=== PATIENT | male | born 1970 | race Caucasian/White ===

== ENCOUNTER 2019-02-16 13:38 | Inpatient (IN) | payer SELFPAY ==
[~2019-02-16] VITALS: Ht 170.2 cm; Wt 118.6 kg
[2019-02-16 13:55] LABS: MEAN CORPUSCULAR HEMOGLOBIN 32.8 pg (27.5-34.5); MEAN CORPUSCULAR VOLUME 99.3 fL (81-97); PLATELET COUNT 281 x10^3/uL (130-400); RED BLOOD COUNT 5.06 x10^6/uL (4.38-5.82); RED CELL DISTRIBUTION WIDTH 13.9 % (9.4-14.8)
[2019-02-16 14:04] LABS: ALANINE AMINOTRANSFERASE 40 U/L (12-78); ALBUMIN 3.7 g/dL (3.4-5.0); ANION GAP 11 mmol/L (5-15); CALCIUM 8.8 mg/dL (8.5-10.1); CHLORIDE 102 mmol/L (98-107); CREATININE 1.07 mg/dL (0.7-1.3)
[2019-02-16 14:05] LABS: BASOPHILS # (AUTO) 0.14 x10^3/uL (0-0.1); BASOPHILS % (AUTO) 1 % (0-1); D-DIMER 0.29 ug/mlFEU (0.00-0.52); EOSINOPHILS # (AUTO) 0.05 x10^3/uL (0-0.4); EOSINOPHILS % (AUTO) 0 % (1-7); INTERNATIONAL NORMALIZED RATIO 1.01 (0.93-1.1); LYMPHOCYTES # (AUTO) 2.47 x10^3/uL (1-3.4); LYMPHOCYTES % (AUTO) 14 % (22-44); MD SCAN; MONOCYTES # (AUTO) 1.91 x10^3/uL (0.2-0.8); MONOCYTES % (AUTO) 11 % (2-9); NEUTROPHILS # (AUTO) 13.64 x10^3/uL (1.8-6.8); NEUTROPHILS % (AUTO) 75 % (42-75); PROTHROMBIN TIME 10.6 Seconds (9.6-11.5)
--- NOTE | 2019-02-16 14:05 | NUR ---
GOKUL RN: PATIENT FINANCIAL SERVICES SPECIALIST VANESA AT BEDSIDE FOR EVAL AND TO DISCUSS POC OPTIONS INCLUDING OPTION FOR MARINE OILER VS TREATMENT IN ER. PT AO X 4. SKIN PWD. RESP EVEN AND UNLABORED. PT REPORTS PAIN Addendum: 02/16/19 at 1407 by JPREMO GOKUL RN: PATIENT FINANCIAL SERVICES SPECIALIST VANESA AT BEDSIDE FOR EVAL AND TO DISCUSS POC OPTIONS INCLUDING OPTION FOR MARINE OILER VS TREATMENT IN ER. PT AO X 4. SKIN PWD. RESP EVEN AND UNLABORED. PT REPORTS PAIN IS WORSE WITH CERTAIN MOVEMENTS AND DEEP BREATHING. DESCRIBES PAIN "STABBING" AND RATES AT "BARELY" A /. PT ON CONT BP, CARDIAC AND O2 MONITORS.
[2019-02-16 14:09] LABS: ALKALINE PHOSPHATASE 73 U/L (45-117); BILIRUBIN,TOTAL 0.9 mg/dL (0.2-1.0); TOTAL PROTEIN 7.9 g/dL (6.4-8.2)
[2019-02-16] MEDS ORDERED: FENTANYL PF 100 MCG/2ML ONE (14:15)
[2019-02-16] MEDS ORDERED: VERAPAMIL 2.5 MG/ML, 2ML ONE (14:15)
[2019-02-16] MEDS ORDERED: MIDAZOLAM 1 MG/ML, 5ML ONE (14:15)
[2019-02-16] MEDS ORDERED: BIVALIRUDIN 250 MG ONE (14:16)
[2019-02-16] MEDS ORDERED: HEPARIN 1,000 UNITS/ML, 10ML ONE (14:16)
[2019-02-16] MEDS ORDERED: LIDOCAINE-MPF 1%, 5ML ONE (14:16)
[2019-02-16] MEDS ORDERED: NITROGLYCERIN 5 MG/ML, 10ML ONE (14:16)
[2019-02-16 15:05] VITALS: BP 126/89
[2019-02-16] MEDS: SODIUM CHLORIDE 0.9% 1,000 ML IV SCH ×2 (16:18→22:52)
[2019-02-16] MEDS: INDOMETHACIN ER 75 MG CAPSULE PO SCH (16:18)
[2019-02-16 19:44] VITALS: BP 122/80
[2019-02-16] MEDS ORDERED: ATORVASTATIN 40 MG TABLET PO SCH (21:00)
[2019-02-16] MEDS: HEPARIN 5,000 UNITS/ML, 1ML SQ SCH (22:53)
[2019-02-17 00:37] VITALS: BP 121/79
[2019-02-17 05:10] LABS: CHLORIDE 105 mmol/L (98-107); CREATININE 1.04 mg/dL (0.7-1.3)
[2019-02-17 05:19] LABS: ANION GAP 7 mmol/L (5-15); CALCIUM 8.8 mg/dL (8.5-10.1); CHOL/HDL RATIO 5.8; CHOLESTEROL, TOTAL 228 mg/dL (140-239); HDL CHOL % 17 % (26-37); HDL CHOLESTEROL (DIRECT) 39 mg/dL (40-60); LDL CHOLESTEROL,CALCULATED 141 mg/dL (54-169); LDL/HDL RATIO 3.6 (0.5-3.0); TRIGLYCERIDES 238 mg/dL (50-200); VLDL CHOLESTEROL 48 mg/dL (0-25)
[2019-02-17] MEDS: SODIUM CHLORIDE 0.9% 1,000 ML IV SCH (06:43)
[2019-02-17] MEDS: HEPARIN 5,000 UNITS/ML, 1ML SQ SCH (06:43)
[2019-02-17 07:35] VITALS: BP 131/89
[2019-02-17] MEDS: INDOMETHACIN ER 75 MG CAPSULE PO SCH (08:15)
[2019-02-17] MEDS ORDERED: ASPIRIN 81 MG TABLET EC PO SCH (09:00)
[2019-02-17 09:16] LABS: MEAN CORPUSCULAR HEMOGLOBIN 33.1 pg (27.5-34.5); MEAN CORPUSCULAR HGB CONC 33.1 g/dL (33.2-36.2); MEAN CORPUSCULAR VOLUME 100.1 fL (81-97); MEAN PLATELET VOLUME 8.4 fL (7.4-10.4); PLATELET COUNT 231 x10^3/uL (130-400); RED BLOOD COUNT 4.73 x10^6/uL (4.38-5.82); RED CELL DISTRIBUTION WIDTH 13.7 % (9.4-14.8)
[2019-02-17 09:42] LABS: BASOPHILS # (AUTO) 0.12 x10^3/uL (0-0.1); BASOPHILS % (AUTO) 1 % (0-1); EOSINOPHILS # (AUTO) 0.21 x10^3/uL (0-0.4); EOSINOPHILS % (AUTO) 2 % (1-7); LYMPHOCYTES # (AUTO) 2.19 x10^3/uL (1-3.4); LYMPHOCYTES % (AUTO) 18 % (22-44); MD SCAN; MONOCYTES # (AUTO) 0.93 x10^3/uL (0.2-0.8); MONOCYTES % (AUTO) 8 % (2-9); NEUTROPHILS # (AUTO) 8.88 x10^3/uL (1.8-6.8); NEUTROPHILS % (AUTO) 72 % (42-75)
[2019-02-17] MEDS ORDERED: INDO75CA3 PO (12:31)
[2019-02-17] MEDS ORDERED: ATOR40TA78 PO (12:31)
[2019-02-17] MEDS ORDERED: CARV3.1212 PO (12:31)
[2019-02-17] MEDS ORDERED: ASPI81TA45 PO (12:31)
[2019-02-17 12:54] VITALS: BP 162/87
== END 2019-02-17 13:40 | disposition home or self-care (01) | DRG 281 ==
LOC: ED 13:55 → EDIP 14:21 → 5SO 15:17 → DCLOUNGE 02-17 13:28
PROVIDERS: ADMIT Internal Medicine Cardiovascular Disease; ATTEND Internal Medicine Cardiovascular Disease
PROC: 4A023N7 Measurement of Cardiac Sampling and Pressure, Left Heart, Percutaneous Approach (ICD-10-PCS; principal; 2019-02-16)
PROC: B2111ZZ Fluoroscopy of Multiple Coronary Arteries using Low Osmolar Contrast (ICD-10-PCS; 2019-02-16)
PROC: B2151ZZ Fluoroscopy of Left Heart using Low Osmolar Contrast (ICD-10-PCS; 2019-02-16)
DX: I21.09 ST elevation (STEMI) myocardial infarction involving other coronary artery of anterior wall (principal); Z68.41 Body mass index [BMI] 40.0-44.9, adult; I31.9 Disease of pericardium, unspecified; J98.11 Atelectasis; D72.829 Elevated white blood cell count, unspecified; E66.9 Obesity, unspecified; E78.1 Pure hyperglyceridemia; E78.5 Hyperlipidemia, unspecified; F17.200 Nicotine dependence, unspecified, uncomplicated; I10 Essential (primary) hypertension; I25.5 Ischemic cardiomyopathy; I25.82 Chronic total occlusion of coronary artery; F19.10 Other psychoactive substance abuse, uncomplicated; Z82.49 Family history of ischemic heart disease and other diseases of the circulatory system; Z72.89 Other problems related to lifestyle
CPT/HCPCS: 36415; 71045; 80047; 80048; 80053; 80061; 84484; 85025; 85379; 85610; 85730; 93005; 93306; 93458; 99291; C1769; C1894; G0378; J0583; J1644; J2250; J3010; J7030; Q9967

== ENCOUNTER 2019-03-10 16:05 | Outpatient (CLI) | payer OTHER | END 2019-03-10 23:59 | disposition home or self-care (01) | LOC: RAD 16:05 → SDC 23:59 | PROVIDERS: ATTEND Thoracic Surgery (Cardiothoracic Vascular Surgery) | DX: I70.0 Atherosclerosis of aorta (principal); I77.810 Thoracic aortic ectasia | CPT/HCPCS: 70496; 71275; 74174; Q9967 ==

== ENCOUNTER 2019-03-11 08:00 | Inpatient (IN) | payer OTHER ==
[~2019-03-11] VITALS: Ht 175.3 cm; Wt 118.8 kg
[~2019-03-11 08:00] MED LIST: ASPI81TA45 PO; ATOR40TA78 PO; CARV3.1212 PO; INDO75CA3 PO
[2019-03-11] MEDS ORDERED: ATOR40TA78 PO (11:11)
[2019-03-11] MEDS ORDERED: LISI1TAB23 PO (11:11)
[2019-03-11] MEDS ORDERED: CARV3.122 PO (11:11)
[2019-03-11] MEDS ORDERED: ASPI81TA45 PO (11:11)
[2019-03-11 11:31] LABS: BASOPHILS # (AUTO) 0.07 x10^3/uL (0-0.1); BASOPHILS % (AUTO) 1 % (0-1); EOSINOPHILS # (AUTO) 0.23 x10^3/uL (0-0.4); EOSINOPHILS % (AUTO) 2 % (1-7); LYMPHOCYTES # (AUTO) 2.62 x10^3/uL (1-3.4); LYMPHOCYTES % (AUTO) 26 % (22-44); MD NO; MEAN CORPUSCULAR HEMOGLOBIN 33.6 pg (27.5-34.5); MEAN CORPUSCULAR HGB CONC 33.3 g/dL (33.2-36.2); MEAN PLATELET VOLUME 8.1 fL (7.4-10.4); MONOCYTES # (AUTO) 0.68 x10^3/uL (0.2-0.8); MONOCYTES % (AUTO) 7 % (2-9); NEUTROPHILS # (AUTO) 6.52 x10^3/uL (1.8-6.8); NEUTROPHILS % (AUTO) 64 % (42-75); PLATELET COUNT 320 x10^3/uL (130-400); RED BLOOD COUNT 4.87 x10^6/uL (4.38-5.82); RED CELL DISTRIBUTION WIDTH 13.5 % (9.4-14.8)
[2019-03-11 11:43] LABS: INTERNATIONAL NORMALIZED RATIO 1.02 (0.93-1.1); PROTHROMBIN TIME 10.7 Seconds (9.6-11.5)
[2019-03-11 11:51] LABS: MICROSCOPIC AUTO
[2019-03-11 11:53] LABS: CULTURE INDICATED? NO
[2019-03-11 13:34] LABS: CHLORIDE 101 mmol/L (98-107)
[2019-03-11 13:44] LABS: ALANINE AMINOTRANSFERASE 44 U/L (12-78); ALBUMIN 3.8 g/dL (3.4-5.0); ALKALINE PHOSPHATASE 73 U/L (45-117); ANION GAP 6 mmol/L (5-15); BILIRUBIN,TOTAL 0.5 mg/dL (0.2-1.0); CALCIUM 9.2 mg/dL (8.5-10.1); CREATININE 1.03 mg/dL (0.7-1.3); TOTAL PROTEIN 7.6 g/dL (6.4-8.2)
[2019-03-11 14:01] LABS: HEMOGLOBIN A1C 6.1 % (4.2-6.3)
[2019-03-12 04:28] VITALS: BP_SYST 120; BP_DIAS 82; BP_DIAS 83
[2019-03-12] MEDS ORDERED: INSULIN LISPRO 100 UNITS/ML, PEN SQ-INSULIN SCH (04:30)
[2019-03-12] MEDS ORDERED: CHLORHEXIDINE 15 ML UDC MM PRN (04:30)
[2019-03-12] MEDS ORDERED: ACETAMINOPHEN 325 MG TABLET PO PRN (04:30)
[2019-03-12] MEDS ORDERED: METOPROLOL TARTRATE 25 MG TABLET PO ONE (05:00)
[2019-03-12] MEDS ORDERED: PAPAVERINE 30 MG/ML, 2ML ONE (06:42)
[2019-03-12] MEDS ORDERED: HEPARIN 1,000 UNITS/ML, 10ML ONE (06:42)
[2019-03-12] MEDS ORDERED: FENTANYL PF 250 MCG/5ML ONE ×5 (07:10→11:22)
[2019-03-12] MEDS ORDERED: CALCIUM CHLORIDE 10%, 10ML SYR ONE (07:10)
[2019-03-12] MEDS ORDERED: ALBUMIN HUMAN 5% 500 ML IV PRN (07:30)
[2019-03-12] MEDS ORDERED: MANNITOL PMX 20% 500 ML IVPB PRN (07:30)
[2019-03-12] MEDS ORDERED: REGULAR INSULIN 62.5 UNITS in SODIUM CHLORIDE 0.9% 249.375 ML IV PRN ×2 (07:30→13:33)
[2019-03-12] MEDS ORDERED: EPINEPHRINE 2 MG in SODIUM CHLORIDE 0.9% 248 ML IV SCH (07:30)
[2019-03-12] MEDS ORDERED: PHENYLEPHRINE 10 MG in SODIUM CHLORIDE 0.9% 249 ML IV PRN ×2 (07:30→13:33)
[2019-03-12] MEDS ORDERED: POTASSIUM CHLORIDE 80 MEQ, SODIUM BICARBONATE 8.4% 10 MEQ, MAGNESIUM SULFATE 0.5 GM, LI... IV PRN (07:30)
[2019-03-12] MEDS ORDERED: VANCOMYCIN 1,700 MG in SODIUM CHLORIDE 0.9% 250 ML IV PRN (07:30)
[2019-03-12] MEDS ORDERED: CEFUROXIME 1.5 GM in SODIUM CHLORIDE 0.9% 50 ML IVPB PRN (07:30)
[2019-03-12] MEDS ORDERED: DEXMEDETOMIDINE 200 MCG in SODIUM CHLORIDE 0.9% 48 ML IV SCH (07:30)
[2019-03-12] MEDS ORDERED: DEXAMETHASONE 4 MG/ML, 1ML ONE (07:48)
[2019-03-12] MEDS ORDERED: PROPOFOL 10 MG/ML, 20ML ONE (07:48)
[2019-03-12] MEDS ORDERED: MUPIROCIN OINT 2%, 22GM TP SCH (09:00)
[2019-03-12] MEDS ORDERED: SODIUM CHLORIDE FLUSH 10ML SYR IVF SCH (09:00)
[2019-03-12] MEDS ORDERED: PHENYLEPHRINE 10 MG/ML ONE (09:18)
[2019-03-12] MEDS ORDERED: PROTAMINE SULFATE 10 MG/ML, 25ML ONE ×2 (09:18)
[2019-03-12] MEDS ORDERED: EPINEPHRINE 1 MG/ML, 1ML ONE (09:18)
[2019-03-12] MEDS ORDERED: AMINOCAPROIC ACID 250 MG/ML, 20ML ONE ×3 (09:18→12:25)
[2019-03-12] MEDS ORDERED: PAPAVERINE 30 MG/ML, 2ML IVPush ONE (09:37)
[2019-03-12] MEDS ORDERED: HEPARIN 1,000 UNITS/ML, 10ML IV ONE (09:38)
[2019-03-12] MEDS ORDERED: ROCURONIUM 10MG/ML,5ML ONE ×3 (09:53→11:22)
[2019-03-12] MEDS ORDERED: DESMOPRESSIN 28 MCG in SODIUM CHLORIDE 0.9% 50 ML IVPB ONE (13:00)
[2019-03-12] MEDS ORDERED: DOBUTAMINE 250 MG in SODIUM CHLORIDE 0.9% 230 ML IV PRN (13:33)
[2019-03-12] MEDS ORDERED: SODIUM CHLORIDE 0.9% 1,000 ML IV PRN (13:33)
[2019-03-12] MEDS ORDERED: NITROGLYCERIN/D5W PMX 250 ML IV PRN (13:33)
[2019-03-12] MEDS ORDERED: VASOPRESSIN 50 UNIT in SODIUM CHLORIDE 0.9% 247.5 ML IV PRN (13:33)
[2019-03-12] MEDS ORDERED: SODIUM BICARBONATE 1 MEQ/ML, 50ML VIAL ONE ×2 (13:49→15:51)
[2019-03-12] MEDS ORDERED: LIDOCAINE 2% 100MG/5ML SYRINGE ONE (13:49)
[2019-03-12] MEDS ORDERED: ALBUMIN HUMAN 25% 50 ML ONE (13:50)
[2019-03-12] MEDS ORDERED: methylPREDNISolone SOD SUCC 125 MG/2 ML ONE (13:50)
[2019-03-12] MEDS ORDERED: HEPARIN 1,000 UNITS/ML, 30ML ONE (13:50)
[2019-03-12] MEDS ORDERED: DEXTROSE 4 GM TAB.CHEW PO PRN (14:00)
[2019-03-12] MEDS ORDERED: MIDAZOLAM 1 MG/ML, 5ML IVPush PRN (14:00)
[2019-03-12] MEDS ORDERED: BISACODYL 10 MG SUPP PR PRN (14:00)
[2019-03-12] MEDS ORDERED: PROCHLORPERAZINE 5 MG/ML, 2ML IVPush PRN (14:00)
[2019-03-12] MEDS ORDERED: EPINEPHRINE 2 MG in SODIUM CHLORIDE 0.9% 248 ML IV PRN (14:00)
[2019-03-12] MEDS ORDERED: INSULIN REGULAR 100 UNITS/ML, 3ML VIAL IVPush PRN (14:00)
[2019-03-12] MEDS: KSCALE TO 4.5 IV SCH ×2 (14:00→19:48)
[2019-03-12] MEDS ORDERED: ACETAMINOPHEN 650 MG SUPP PR PRN (14:00)
[2019-03-12] MEDS ORDERED: GLUCAGON 1 MG IM PRN (14:00)
[2019-03-12] MEDS ORDERED: BISACODYL 5 MG EC TABLET PO PRN (14:00)
[2019-03-12] MEDS ORDERED: ONDANSETRON 2MG/ML, 2ML IVPush PRN (14:00)
[2019-03-12] MEDS ORDERED: DEXTROSE 50%, 50ML SYRINGE IVPush PRN (14:00)
[2019-03-12 14:01] LABS: GLUCOSE BY BLOOD GAS ANALYZER 161 mg/dL (70-110); HEMOGLOBIN BY BLOOD GAS ANALYZ 13.3 g/dL (14.0-18.0); POTASSIUM BY BLOOD GAS ANALYZR 3.9 mmol/L (3.6-5.5)
[2019-03-12 14:12] LABS: INTERNATIONAL NORMALIZED RATIO 1.19 (0.93-1.1); PROTHROMBIN TIME 12.4 Seconds (9.6-11.5)
[2019-03-12] MEDS: MAGNESIUM SULFATE 1 GM in SODIUM CHLORIDE 0.9% 50 ML IVPB SCH (14:25)
[2019-03-12] MEDS: morphine SULFATE 10 MG/ML, 1ML IVPush PRN ×2 (14:44→16:03)
[2019-03-12] MEDS: DEXMEDETOMIDINE 200 MCG in SODIUM CHLORIDE 0.9% 48 ML IV PRN ×2 (15:13→18:23)
[2019-03-12] MEDS ORDERED: POTASSIUM CHLORIDE PMX 100 ML IV ONE (15:30)
[2019-03-12] MEDS: SODIUM BICARB 8.4%, 50ML SYRINGE IV PRN ×2 (15:55→17:31)
[2019-03-12] MEDS: INSULIN LISPRO 100 UNITS/ML, PEN SQ-INSULIN SCH ×2 (16:00→20:06)
[2019-03-12] MEDS: LACTATED RINGERS 1,000 ML IV PRN ×2 (19:31→22:05)
[2019-03-12] MEDS ORDERED: CALCIUM CHLORIDE 10%, 10ML SYR IVPush ONE (20:00)
[2019-03-12] MEDS ORDERED: ALBUMIN HUMAN 5% 500 ML IV ONE (20:00)
[2019-03-12] MEDS ORDERED: CALCIUM CHLORIDE 13.6 MEQ in SODIUM CHLORIDE 0.9% 100 ML IV ONE (20:00)
[2019-03-12] MEDS: SODIUM CHLORIDE FLUSH 10ML SYR IVF SCH (20:06)
[2019-03-12] MEDS: CHLORHEXIDINE 15 ML UDC MM SCH (20:30)
[2019-03-12] MEDS: MUPIROCIN OINT 2%, 22GM NAS SCH (20:33)
[2019-03-12] MEDS: OXYcodone IR 5MG TABLET PO PRN (20:37)
[2019-03-12] MEDS: DOCUSATE 100 MG CAPSULE PO SCH (20:39)
[2019-03-12] MEDS: CEFUROXIME 1.5 GM in SODIUM CHLORIDE 0.9% 50 ML IVPB SCH (21:22)
[2019-03-12] MEDS: VANCOMYCIN 1,700 MG in SODIUM CHLORIDE 0.9% 250 ML IVPB SCH (21:40)
[2019-03-12] MEDS: HYDROcodone/APAP 5/325 TABLET PO PRN (22:49)
[2019-03-13] MEDS: OXYcodone IR 5MG TABLET PO PRN ×3 (01:11→18:49)
[2019-03-13 01:43] LABS: BASOPHILS # (AUTO) 0.08 x10^3/uL (0-0.1); BASOPHILS % (AUTO) 1 % (0-1); EOSINOPHILS % (AUTO) 0 % (1-7); LYMPHOCYTES # (AUTO) 0.65 x10^3/uL (1-3.4); LYMPHOCYTES % (AUTO) 5 % (22-44); MD NO; MEAN CORPUSCULAR HEMOGLOBIN 32.7 pg (27.5-34.5); MEAN CORPUSCULAR HGB CONC 32.8 g/dL (33.2-36.2); MEAN CORPUSCULAR VOLUME 99.7 fL (81-97); MONOCYTES % (AUTO) 10 % (2-9); NEUTROPHILS # (AUTO) 11.67 x10^3/uL (1.8-6.8); NEUTROPHILS % (AUTO) 85 % (42-75); PLATELET COUNT 188 x10^3/uL (130-400); RED BLOOD COUNT 3.37 x10^6/uL (4.38-5.82); RED CELL DISTRIBUTION WIDTH 13.3 % (9.4-14.8)
[2019-03-13 01:51] LABS: ALBUMIN 3.3 g/dL (3.4-5.0); ANION GAP 5 mmol/L (5-15); CHLORIDE 110 mmol/L (98-107); CREATININE 0.78 mg/dL (0.7-1.3)
[2019-03-13] MEDS: KSCALE TO 4.5 IV SCH ×2 (01:55→08:00)
[2019-03-13] MEDS ORDERED: MORPHINE SULFATE 4 MG/ML, 1ML ONE (02:37)
[2019-03-13] MEDS: morphine SULFATE 10 MG/ML, 1ML IVPush PRN (02:38)
[2019-03-13] MEDS: HYDROcodone/APAP 5/325 TABLET PO PRN ×4 (04:19→20:14)
[2019-03-13] MEDS: INSULIN LISPRO 100 UNITS/ML, PEN SQ-INSULIN SCH ×4 (07:00→21:52)
[2019-03-13] MEDS: DOCUSATE 100 MG CAPSULE PO SCH ×2 (08:40→20:14)
[2019-03-13] MEDS: ASPIRIN 81 MG TABLET EC PO SCH (08:40)
[2019-03-13] MEDS: METOPROLOL TARTRATE 25 MG TABLET PO/NG SCH ×3 (08:40→20:14)
[2019-03-13] MEDS: SODIUM CHLORIDE FLUSH 10ML SYR IVF SCH ×5 (08:41→20:15)
[2019-03-13] MEDS: MUPIROCIN OINT 2%, 22GM NAS SCH ×2 (08:41→20:14)
[2019-03-13] MEDS ORDERED: DEXTROSE 4 GM TAB.CHEW PO PRN (09:00)
[2019-03-13] MEDS: FUROSEMIDE 20 MG/2 ML IV SCH (09:00)
[2019-03-13] MEDS ORDERED: GLUCAGON 1 MG IM PRN (09:00)
[2019-03-13] MEDS ORDERED: DEXTROSE 50%, 50ML SYRINGE IVPush PRN (09:00)
[2019-03-13] MEDS ORDERED: MAGNESIUM HYDROXIDE 8%, 30ML UDC PO PRN (09:00)
[2019-03-13] MEDS: VANCOMYCIN 1,700 MG in SODIUM CHLORIDE 0.9% 250 ML IVPB SCH (09:38)
[2019-03-13] MEDS: CEFUROXIME 1.5 GM in SODIUM CHLORIDE 0.9% 50 ML IVPB SCH (09:39)
[2019-03-13] MEDS ORDERED: LISINOPRIL 10 MG TABLET ONE (11:50)
[2019-03-13] MEDS: LISINOPRIL 10 MG TABLET PO SCH (11:59)
[2019-03-13 14:09] VITALS: BP 138/91
[2019-03-13] MEDS: MAGNESIUM SULFATE 1 GM in SODIUM CHLORIDE 0.9% 50 ML IVPB SCH (14:50)
[2019-03-13 18:37] VITALS: BP 113/77
[2019-03-13] MEDS: ATORVASTATIN 40 MG TABLET PO SCH (20:14)
[2019-03-14 00:07] VITALS: BP 121/79
[2019-03-14] MEDS: HYDROcodone/APAP 5/325 TABLET PO PRN ×3 (00:14→08:05)
[2019-03-14] MEDS: OXYcodone IR 5MG TABLET PO PRN (02:23)
[2019-03-14 04:43] LABS: MEAN CORPUSCULAR HEMOGLOBIN 33.7 pg (27.5-34.5); MEAN CORPUSCULAR HGB CONC 33.4 g/dL (33.2-36.2); MEAN CORPUSCULAR VOLUME 101.1 fL (81-97); PLATELET COUNT 189 x10^3/uL (130-400); RED BLOOD COUNT 3.36 x10^6/uL (4.38-5.82); RED CELL DISTRIBUTION WIDTH 13.6 % (9.4-14.8)
[2019-03-14 04:53] LABS: ANION GAP 4 mmol/L (5-15); CALCIUM 8.3 mg/dL (8.5-10.1); CHLORIDE 100 mmol/L (98-107); CREATININE 0.75 mg/dL (0.7-1.3)
[2019-03-14 05:05] LABS: BASOPHILS # (AUTO) 0.12 x10^3/uL (0-0.1); BASOPHILS % (AUTO) 1 % (0-1); EOSINOPHILS # (AUTO) 0.05 x10^3/uL (0-0.4); EOSINOPHILS % (AUTO) 0 % (1-7); LYMPHOCYTES # (AUTO) 1.73 x10^3/uL (1-3.4); LYMPHOCYTES % (AUTO) 10 % (22-44); MD SCAN; MONOCYTES # (AUTO) 1.51 x10^3/uL (0.2-0.8); MONOCYTES % (AUTO) 8 % (2-9); NEUTROPHILS # (AUTO) 14.85 x10^3/uL (1.8-6.8); NEUTROPHILS % (AUTO) 81 % (42-75)
[2019-03-14 07:50] VITALS: BP 110/81
[2019-03-14] MEDS: POTASSIUM CHLORIDE 10 MEQ TABLET.ER PO SCH (08:10)
[2019-03-14] MEDS: METOPROLOL TARTRATE 25 MG TABLET PO/NG SCH ×2 (08:11→20:32)
[2019-03-14] MEDS: CHLORHEXIDINE 15 ML UDC MM SCH ×2 (08:11→20:30)
[2019-03-14] MEDS: DOCUSATE 100 MG CAPSULE PO SCH ×2 (08:12→20:32)
[2019-03-14] MEDS: FUROSEMIDE 20 MG/2 ML IV SCH (08:12)
[2019-03-14] MEDS: LISINOPRIL 10 MG TABLET PO SCH (08:15)
[2019-03-14] MEDS: ASPIRIN 81 MG TABLET EC PO SCH (08:15)
[2019-03-14] MEDS: SODIUM CHLORIDE FLUSH 10ML SYR IVF SCH ×6 (08:16→20:34)
[2019-03-14] MEDS: MUPIROCIN OINT 2%, 22GM NAS SCH ×2 (08:16→20:32)
[2019-03-14] MEDS: INSULIN LISPRO 100 UNITS/ML, PEN SQ-INSULIN SCH ×4 (08:28→21:02)
[2019-03-14] MEDS ORDERED: ENOXAPARIN 40 MG/0.4 ML SQ SCH (09:00)
[2019-03-14] MEDS ORDERED: METOPROLOL TARTRATE 25 MG TABLET PO/NG SCH (09:00)
[2019-03-14] MEDS ORDERED: METOPROLOL TARTRATE 25 MG TABLET PO ONE (09:30)
[2019-03-14] MEDS: HYDROcodone/APAP 10/325 MG TABLET PO PRN ×3 (12:05→22:53)
[2019-03-14 13:30] VITALS: BP 110/74
[2019-03-14] MEDS: MAGNESIUM SULFATE 1 GM in SODIUM CHLORIDE 0.9% 50 ML IVPB SCH (13:49)
[2019-03-14 19:40] VITALS: BP 110/69
[2019-03-14] MEDS: ENOXAPARIN 30 MG/0.3 ML SQ SCH (20:30)
[2019-03-14] MEDS: ATORVASTATIN 40 MG TABLET PO SCH (20:32)
[2019-03-15 00:28] VITALS: BP 112/83
[2019-03-15] MEDS: HYDROcodone/APAP 10/325 MG TABLET PO PRN ×2 (03:25→19:10)
[2019-03-15 06:02] LABS: CHLORIDE 102 mmol/L (98-107)
[2019-03-15 06:10] LABS: BASOPHILS # (AUTO) 0.03 x10^3/uL (0-0.1); BASOPHILS % (AUTO) 0 % (0-1); EOSINOPHILS % (AUTO) 2 % (1-7); LYMPHOCYTES # (AUTO) 1.88 x10^3/uL (1-3.4); LYMPHOCYTES % (AUTO) 12 % (22-44); MD NO; MEAN CORPUSCULAR HEMOGLOBIN 33.3 pg (27.5-34.5); MEAN CORPUSCULAR HGB CONC 32.8 g/dL (33.2-36.2); MEAN CORPUSCULAR VOLUME 101.4 fL (81-97); MEAN PLATELET VOLUME 8.4 fL (7.4-10.4); MONOCYTES # (AUTO) 1.44 x10^3/uL (0.2-0.8); MONOCYTES % (AUTO) 9 % (2-9); NEUTROPHILS # (AUTO) 11.68 x10^3/uL (1.8-6.8); NEUTROPHILS % (AUTO) 76 % (42-75); PLATELET COUNT 218 x10^3/uL (130-400); RED BLOOD COUNT 3.47 x10^6/uL (4.38-5.82); RED CELL DISTRIBUTION WIDTH 13.4 % (9.4-14.8)
[2019-03-15 06:16] LABS: CALCIUM 8.4 mg/dL (8.5-10.1); CREATININE 0.68 mg/dL (0.7-1.3)
[2019-03-15] MEDS: INSULIN LISPRO 100 UNITS/ML, PEN SQ-INSULIN SCH ×2 (07:00→11:00)
[2019-03-15 07:06] VITALS: BP 105/69
[2019-03-15 07:10] LABS: ANION GAP 5 mmol/L (5-15)
[2019-03-15] MEDS: POTASSIUM CHLORIDE 10 MEQ TABLET.ER PO SCH (08:16)
[2019-03-15] MEDS: CLOPIDOGREL 75 MG TABLET PO SCH (08:16)
[2019-03-15] MEDS: ASPIRIN 81 MG TABLET EC PO SCH (08:16)
[2019-03-15] MEDS: DOCUSATE 100 MG CAPSULE PO SCH ×2 (08:16→20:27)
[2019-03-15] MEDS: LISINOPRIL 10 MG TABLET PO SCH (08:17)
[2019-03-15] MEDS: METOPROLOL TARTRATE 25 MG TABLET PO/NG SCH ×2 (08:17→20:27)
[2019-03-15] MEDS: FUROSEMIDE 20 MG TABLET PO SCH (08:17)
[2019-03-15] MEDS: MUPIROCIN OINT 2%, 22GM NAS SCH ×2 (08:18→20:26)
[2019-03-15] MEDS: CHLORHEXIDINE 15 ML UDC MM SCH (08:18)
[2019-03-15] MEDS: ENOXAPARIN 30 MG/0.3 ML SQ SCH ×2 (08:19→20:28)
[2019-03-15] MEDS: SODIUM CHLORIDE FLUSH 10ML SYR IVF SCH ×4 (08:19→20:28)
[2019-03-15] MEDS ORDERED: MAGNESIUM HYDROXIDE 8%, 30ML UDC PO PRN (12:30)
[2019-03-15] MEDS ORDERED: LIDOCAINE 1%, 10ML ONE (12:56)
[2019-03-15 13:58] VITALS: BP 93/68
[2019-03-15 20:07] VITALS: BP 123/80
[2019-03-15] MEDS: ATORVASTATIN 40 MG TABLET PO SCH (20:27)
[2019-03-16] MEDS: HYDROcodone/APAP 10/325 MG TABLET PO PRN ×2 (00:18→20:28)
[2019-03-16 01:09] VITALS: BP 105/66
[2019-03-16 05:16] LABS: BASOPHILS # (AUTO) 0.12 x10^3/uL (0-0.1); BASOPHILS % (AUTO) 1 % (0-1); EOSINOPHILS # (AUTO) 0.45 x10^3/uL (0-0.4); EOSINOPHILS % (AUTO) 4 % (1-7); LYMPHOCYTES # (AUTO) 2.17 x10^3/uL (1-3.4); LYMPHOCYTES % (AUTO) 17 % (22-44); MD NO; MEAN CORPUSCULAR HGB CONC 32.7 g/dL (33.2-36.2); MEAN CORPUSCULAR VOLUME 100.9 fL (81-97); MEAN PLATELET VOLUME 7.7 fL (7.4-10.4); MONOCYTES # (AUTO) 1.29 x10^3/uL (0.2-0.8); MONOCYTES % (AUTO) 10 % (2-9); NEUTROPHILS # (AUTO) 8.79 x10^3/uL (1.8-6.8); NEUTROPHILS % (AUTO) 69 % (42-75); PLATELET COUNT 243 x10^3/uL (130-400); RED BLOOD COUNT 3.28 x10^6/uL (4.38-5.82); RED CELL DISTRIBUTION WIDTH 13.3 % (9.4-14.8)
[2019-03-16 05:24] LABS: ANION GAP 6 mmol/L (5-15); CALCIUM 8.2 mg/dL (8.5-10.1); CHLORIDE 103 mmol/L (98-107); CREATININE 0.72 mg/dL (0.7-1.3)
[2019-03-16] MEDS: ACETAMINOPHEN 325 MG TABLET PO PRN ×2 (06:01→12:07)
[2019-03-16 07:43] VITALS: BP 105/69
[2019-03-16] MEDS ORDERED: CLOP75TA PO (08:39)
[2019-03-16] MEDS ORDERED: HYDR-36 PO (08:39)
[2019-03-16] MEDS ORDERED: DOCU-131 PO (08:39)
[2019-03-16] MEDS ORDERED: METO25TA35 PO/NG ×2 (08:39)
[2019-03-16] MEDS: MUPIROCIN OINT 2%, 22GM NAS SCH ×2 (08:47→20:28)
[2019-03-16] MEDS: CLOPIDOGREL 75 MG TABLET PO SCH (08:47)
[2019-03-16] MEDS: SODIUM CHLORIDE FLUSH 10ML SYR IVF SCH ×2 (08:47→20:29)
[2019-03-16] MEDS: DOCUSATE 100 MG CAPSULE PO SCH ×2 (08:47→20:28)
[2019-03-16] MEDS: ASPIRIN 81 MG TABLET EC PO SCH (08:47)
[2019-03-16] MEDS: LISINOPRIL 10 MG TABLET PO SCH (08:48)
[2019-03-16] MEDS: FUROSEMIDE 20 MG TABLET PO SCH (08:48)
[2019-03-16] MEDS: ENOXAPARIN 40 MG/0.4 ML SQ SCH (08:51)
[2019-03-16] MEDS: POTASSIUM CHLORIDE 10 MEQ TABLET.ER PO SCH (09:03)
[2019-03-16] MEDS: METOPROLOL TARTRATE 25 MG TABLET PO/NG SCH ×2 (09:04→20:29)
[2019-03-16] MEDS ORDERED: OMNIPAQUE 350 MG/ML, 100ML BOTTLE ONE (11:53)
[2019-03-16] MEDS ORDERED: ALBUTEROL SULFATE 2.5 MG/3 ML NPPB PRN (12:00)
[2019-03-16] MEDS: ACETYLCYSTEINE 20%, 4ML INH SCH ×3 (12:19→19:50)
[2019-03-16] MEDS: ALBUTEROL/IPRATROPIUM 2.5MG/0.5MG, 3 ML NPPB SCH ×3 (12:20→20:00)
[2019-03-16 14:00] VITALS: BP 98/69
[2019-03-16] MEDS ORDERED: ACETYLCYSTEINE 20%, 4ML NPPB SCH ×2 (14:00→15:00)
[2019-03-16] MEDS ORDERED: ACETYLCYSTEINE 20%, 4ML INH SCH (16:00)
[2019-03-16 19:56] VITALS: BP 129/86
[2019-03-16] MEDS: ATORVASTATIN 40 MG TABLET PO SCH (20:28)
[2019-03-17] MEDS: HYDROcodone/APAP 10/325 MG TABLET PO PRN (00:30)
[2019-03-17 00:53] VITALS: BP 130/90
[2019-03-17] MEDS: ACETAMINOPHEN 325 MG TABLET PO PRN (03:47)
[2019-03-17 05:44] LABS: ANION GAP 6 mmol/L (5-15); CALCIUM 8.9 mg/dL (8.5-10.1); CHLORIDE 105 mmol/L (98-107); CREATININE 0.87 mg/dL (0.7-1.3)
[2019-03-17 05:53] LABS: BASOPHILS # (AUTO) 0.05 x10^3/uL (0-0.1); BASOPHILS % (AUTO) 0 % (0-1); EOSINOPHILS # (AUTO) 0.46 x10^3/uL (0-0.4); EOSINOPHILS % (AUTO) 4 % (1-7); LYMPHOCYTES # (AUTO) 2.14 x10^3/uL (1-3.4); LYMPHOCYTES % (AUTO) 18 % (22-44); MD NO; MEAN CORPUSCULAR HEMOGLOBIN 33.2 pg (27.5-34.5); MEAN CORPUSCULAR HGB CONC 32.9 g/dL (33.2-36.2); MEAN PLATELET VOLUME 7.3 fL (7.4-10.4); MONOCYTES # (AUTO) 1.23 x10^3/uL (0.2-0.8); MONOCYTES % (AUTO) 10 % (2-9); NEUTROPHILS # (AUTO) 8.02 x10^3/uL (1.8-6.8); NEUTROPHILS % (AUTO) 67 % (42-75); PLATELET COUNT 335 x10^3/uL (130-400); RED BLOOD COUNT 3.68 x10^6/uL (4.38-5.82); RED CELL DISTRIBUTION WIDTH 13.5 % (9.4-14.8)
[2019-03-17] MEDS: ALBUTEROL/IPRATROPIUM 2.5MG/0.5MG, 3 ML NPPB SCH (07:00)
[2019-03-17] MEDS: ACETYLCYSTEINE 20%, 4ML INH SCH (07:00)
[2019-03-17 07:50] VITALS: BP 111/75
[2019-03-17] MEDS ORDERED: METOPROLOL TARTRATE 50 MG TABLET PO SCH (08:30)
[2019-03-17] MEDS: DOCUSATE 100 MG CAPSULE PO SCH (08:32)
[2019-03-17] MEDS: CLOPIDOGREL 75 MG TABLET PO SCH (08:32)
[2019-03-17] MEDS: MUPIROCIN OINT 2%, 22GM NAS SCH (08:32)
[2019-03-17] MEDS: ENOXAPARIN 40 MG/0.4 ML SQ SCH (08:32)
[2019-03-17] MEDS: SODIUM CHLORIDE FLUSH 10ML SYR IVF SCH (08:33)
[2019-03-17] MEDS: ASPIRIN 81 MG TABLET EC PO SCH (08:33)
[2019-03-17] MEDS ORDERED: LISINOPRIL 5 MG TABLET PO SCH (09:00)
[2019-03-17 12:01] VITALS: BP 112/78
[2019-03-17] MEDS ORDERED: METO50TA82 PO (12:06)
[2019-03-17] MEDS ORDERED: ATOR-2 PO (12:08)
[2019-03-17] MEDS ORDERED: LISI5TAB7 PO (12:16)
== END 2019-03-17 13:24 | disposition home or self-care (01) | DRG 235 ==
LOC: 5SO 03-12 04:15 → CCU 03-12 07:22 → CSU 03-12 07:58 → 5SO 03-13 13:19 → DCLOUNGE 03-17 13:08
PROVIDERS: ADMIT Thoracic Surgery (Cardiothoracic Vascular Surgery); ATTEND Thoracic Surgery (Cardiothoracic Vascular Surgery)
PROC: 02100Z9 Bypass Coronary Artery, One Artery from Left Internal Mammary, Open Approach (ICD-10-PCS; 2019-03-12)
PROC: 06BQ4ZZ Excision of Left Saphenous Vein, Percutaneous Endoscopic Approach (ICD-10-PCS; 2019-03-12)
PROC: 5A1221Z Performance of Cardiac Output, Continuous (ICD-10-PCS; 2019-03-12)
PROC: 02H Heart and Great Vessels, Insertion (ICD-10-PCS; 2019-03-12)
PROC: 02HV33Z Insertion of Infusion Device into Superior Vena Cava, Percutaneous Approach (ICD-10-PCS; 2019-03-12)
PROC: B548ZZA Ultrasonography of Superior Vena Cava, Guidance (ICD-10-PCS; 2019-03-12)
PROC: 021109W Bypass Coronary Artery, Two Arteries from Aorta with Autologous Venous Tissue, Open Approach (ICD-10-PCS; principal; 2019-03-12 07:30)
PROC: 0W9B3ZZ Drainage of Left Pleural Cavity, Percutaneous Approach (ICD-10-PCS; 2019-03-15)
DX: I25.119 Atherosclerotic heart disease of native coronary artery with unspecified angina pectoris (principal); I50.31 Acute diastolic (congestive) heart failure; E87.2 Acidosis; J98.11 Atelectasis; J91.8 Pleural effusion in other conditions classified elsewhere; E66.9 Obesity, unspecified; Z68.38 Body mass index [BMI] 38.0-38.9, adult; E78.5 Hyperlipidemia, unspecified; G89.18 Other acute postprocedural pain; I25.41 Coronary artery aneurysm; F17.200 Nicotine dependence, unspecified, uncomplicated; I11.0 Hypertensive heart disease with heart failure; I25.5 Ischemic cardiomyopathy; Z82.49 Family history of ischemic heart disease and other diseases of the circulatory system; Z79.899 Other long term (current) drug therapy
CPT/HCPCS: 32555; 36415; 36600; J3490; J7608; J7613; J7620; S0017; 71045; 71046; 71275; 80048; 80053; 81001; 82040; 82330; 82800; 82803; 82810; 82947; 82962; 83036; 83735; 84132; 84295; 85014; 85018; 85025; 85049; 85347; 85610; 85730; 86850; 86900; 86923; 87081; 93005; 93312; 93321; 93325; 93880; 93970; 94002; 94150; 94640; 94668; G0378; J0171; J0697; J1100; J1644; J1650; J1815; J2597; J2704; J2720; J3010; J3370; J3475; J3480; P9045; P9047; Q9967; C1751; C1760; J1940; J2270; J2370; J2440; J2930; J7050; J7120

== ENCOUNTER 2021-04-11 07:59 | Outpatient (CLI) | payer OTHER ==
[~2021-04-11 07:59] MED LIST changes: +ATOR-2 PO; +CARV3.122 PO; +CLOP75TA PO; +DOCU-131 PO; +HYDR-3248 PO; +LISI1TAB23 PO; +LISI5TAB7 PO; +METO25TA35 PO/NG; +METO50TA82 PO
[2021-04-11 08:27] LABS: ALANINE AMINOTRANSFERASE 67 U/L (12-78); ALBUMIN 3.6 g/dL (3.4-5.0); ANION GAP 3 mmol/L (5-15); CALCIUM 8.8 mg/dL (8.5-10.1); CHLORIDE 109 mmol/L (98-107)
[2021-04-11 08:30] LABS: ALKALINE PHOSPHATASE 75 U/L (45-117); BILIRUBIN,TOTAL 0.5 mg/dL (0.2-1.0); CHOLESTEROL, TOTAL 118 mg/dL (140-239); CREATININE 0.99 mg/dL (0.7-1.3); HDL CHOL % 34 % (26-37); HDL CHOLESTEROL (DIRECT) 40 mg/dL (40-60); LDL CHOLESTEROL,CALCULATED 50 mg/dL (54-169); LDL/HDL RATIO 1.3 (0.5-3.0); TOTAL PROTEIN 7.3 g/dL (6.4-8.2); TRIGLYCERIDES 138 mg/dL (50-200); VLDL CHOLESTEROL 28 mg/dL (0-25)
== END 2021-04-11 23:59 | disposition home or self-care (01) ==
LOC: LAB 07:59
PROVIDERS: ATTEND Internal Medicine Cardiovascular Disease
DX: I11.0 Hypertensive heart disease with heart failure (principal); E78.2 Mixed hyperlipidemia; I50.31 Acute diastolic (congestive) heart failure; J96.00 Acute respiratory failure, unspecified whether with hypoxia or hypercapnia; I34.0 Nonrheumatic mitral (valve) insufficiency; I25.41 Coronary artery aneurysm; I25.119 Atherosclerotic heart disease of native coronary artery with unspecified angina pectoris; I24.9 Acute ischemic heart disease, unspecified; I21.4 Non-ST elevation (NSTEMI) myocardial infarction; I21.09 ST elevation (STEMI) myocardial infarction involving other coronary artery of anterior wall
CPT/HCPCS: 36415; 80053; 80061